=== PATIENT | female | born 1990 | race African-American/Black ===

== ENCOUNTER 2021-03-17 18:35 | Emergency (ER) | payer BC ==
[~2021-03-17] VITALS: Ht 165.1 cm; Wt 150.5 kg
--- NOTE | 2021-03-17 18:44 | PHYS DOC ---
Adult General HPI HPI Patient is a 30-year-old female with a past medical history significant for asthma, who presents to the emergency department with a chief complaint of shortness of breath. States over the last 2 days she has had some wheeze and cough but has been out of her asthma medications as she just moved to [place] and has not seen her doctor in several months. States that she usually does not have bad asthma but it can be exacerbated by people smoking around her cleaning chemicals and states it started after she cleaned her house couple days ago. Denies any recent traumas, travels, illnesses, fevers, chest pain, abdominal pain, nausea, vomiting, diarrhea. Denies any known ill contacts. Review of Systems Review of Systems Review of systems otherwise unremarkable except noted in HPI Physical Exam Physical Exam Constitutional: Well developed, well nourished, no acute distress, non-toxic appearance. [] HENT: Normocephalic, atraumatic, oropharynx moist, no oral exudates, Eyes: conjunctiva normal, no discharge. [] Neck: Normal range of motion, no tenderness, supple, no stridor. [] Cardiovascular:Heart rate regular rhythm, no murmur [] Lungs & Thorax: Bilateral, global, mild end expiratory wheeze with no rhonchi, no respiratory distress or tachypnea Abdomen: soft, no tenderness, no masses, no pulsatile masses. [] Skin: Warm, dry, no erythema, no rash. [] Back:no CVA tenderness. [] Extremities: No tenderness, no cyanosis, no clubbing, ROM intact, no edema. [] Neurologic: Alert and oriented X 3, no focal deficits noted. [] Psychologic: Affect normal, judgement normal, mood normal. [] EKG EKG [] Radiology/Procedures Radiology/Procedures [] Heart Score C/O Chest Pain: No Risk Factors: Risk Factors: DM, Current or recent (<one month) smoker, HTN, HLP, family history of CAD, obesity. Risk Scores: Risk Factors: DM, Current or recent (<one month) smoker, HTN, HLP, family history of CAD, obesity. Course & Med Decision Making Course & Med Decision Making Patient is a 30-year-old female who presents to the emergency department with a chief complaint of shortness of breath Vital signs notable for sinus tachycardia. Physical exam noted above. Patient given breathing treatment. Given albuterol inhaler and spacer for home and instructed on its use. Given prescription for albuterol at home. Given contact information for local primary care physician. Advised to call Saturday morning to set up a follow-up appointment and establish care with a local PCP. Gave return precautions to the ED. Patient grateful, verbalized understanding and agreed with plan of discharge. [] Dragon Disclaimer Dragon Disclaimer This electronic medical record was generated, in whole or in part, using a voice recognition dictation system. Departure Departure: Impression: Primary Impression: Shortness of breath Additional Impression: Asthma exacerbation Disposition: HOME / SELF CARE / HOMELESS Condition: GOOD Referrals: [facility]AB[facility]EC[facility] Patient Instructions: Asthma Prevention-Brief, Asthma, Adult Additional Instructions: Thank you for coming into the emergency department tonight and allowing us to take care of you. Please read all the attached information carefully to go back over some of the things we discussed. Please use your albuterol as prescribed. Please call a primary care physician on Saturday to establish care here in [place] and set up a follow-up appointment for management of your asthma. Please come back to the ED with new or concerning symptoms as we discussed. Scripts Albuterol Sulfate (PROAIR HFA INHALER) 8.5 Gm Hfa.aer.ad 2 PUFF IH PRN Q4-6HRS PRN for wheezing for 21 Days, #1 INHALER 5 Refills Prov: IZABELA BELLA MD 03/17/21 Problem Qualifiers IZABELA BELLA MD Mar 17, 2021 18:44
[2021-03-17] MEDS ORDERED: ALBU2.5V8 IH (18:54)
[2021-03-17] MEDS ORDERED: DEXAMETHASONE 4 MG TABLET PO ONE (19:00)
[2021-03-17] MEDS ORDERED: ALBUTEROL SULFATE 8GM INHALER. INH ONE (19:00)
[2021-03-17] MEDS ORDERED: IPRATRPIUM/ALBUTEROL 0.5/2.5MG 3 ML NEBU. NEB ONE (19:00)
[2021-03-17 19:10] VITALS: BP 140/82
== END 2021-03-17 19:23 | disposition home or self-care (01) ==
LOC: ER 18:35
DX: J45.901 Unspecified asthma with (acute) exacerbation (principal)
CPT/HCPCS: 94640; 99284; J8540; 94664